=== PATIENT | female | born 1970 | race American Indian/Alaskan Native ===

== ENCOUNTER 2017-11-05 07:03 | Day surgery (SDC) | payer BC ==
[2017-11-05] MEDS ORDERED: VERSED ONE (07:26)
[2017-11-05] MEDS ORDERED: TRANSDERM-SCOP TD ONE (07:26)
[2017-11-05] MEDS ORDERED: ZOFRAN IV PRN ×2 (07:50)
[2017-11-05] MEDS ORDERED: DILAUDID IV PRN (07:50)
[2017-11-05] MEDS ORDERED: NACL 0.9% 1000 ML 1,000 ML IV SCH (08:00)
[2017-11-05] MEDS ORDERED: DIPRIVAN 10 MG/ML IV ONE (08:14)
[2017-11-05] MEDS ORDERED: XYLOCAINE MPF 2% ONE (08:15)
[2017-11-05] MEDS ORDERED: DECADRON ONE (08:16)
[2017-11-05] MEDS ORDERED: ANCEF/STERILE WATER 2 GM/20 ML IV NR (09:00)
--- NOTE | 2017-11-05 11:43 | Short Stay Summary ---
Short Stay Documentation Date of service: 11/05/17 - History H&P: obtained from office - Allergies and Medications Current Medications: Allergies hydrocodone Allergy (Verified 10/29/17 16:53) Hives naproxen [From Aleve] Allergy (Verified 10/29/17 16:53) Hives Home Medications Medication Instructions Recorded Confirmed Last Taken Type No Known Home Medications [No 10/29/17 10/29/17 Unknown History Reported Home Medications] Active Medications Cefazolin Sodium (Ancef/Sterile Water 2 Gm/20 Ml) 2 gm IV PREOP NR Stop: 11/05/17 23:59 Hydromorphone HCl (Dilaudid) 0.25 mg IV Q10MIN PRN PRN Reason: Pain, Moderate (4-6) Stop: 11/05/17 16:00 Sodium Chloride (Nacl 0.9% 1000 Ml) 1,000 mls @ 100 mls/hr IV DIRECT JENNY Last Admin: 11/05/17 08:20 Dose: 100 mls/hr Ondansetron HCl (Zofran) 8 mg IV ONCE PRN PRN Reason: Nausea And Vomiting Stop: 11/05/17 16:00 Ondansetron HCl (Zofran) 4 mg IV ONCE PRN PRN Reason: Nausea And Vomiting Stop: 11/05/17 16:00 - Brief post op/procedure progress note Date of procedure: 11/05/17 Pre-op diagnosis: right reanl 9mm Post-op diagnosis: same Procedure: right renal eswl Anesthesia: GETA Findings: or pacu home Surgeon: CATIA COLMENARES Estimated blood loss: minimal Pathology: none Specimen disposition: to lab Condition: stable - Hospital course Hospital course: or pacu home - Disposition Condition at discharge: Good Disposition: DC-01 TO HOME OR SELFCARE Short Stay Discharge Plan Activity: advance as tolerated Diet: advance as tolerated Follow up with: CATIA COLMENARES MD [Staff Physician] - 7 Days
--- NOTE | 2017-11-05 12:52 | Anesthesia Consultation ---
Anesthesia Consult and Med Hx Date of service: 11/05/17 - Airway Anesthetic Teeth Evaluation: Good ROM Head & Neck: Adequate Mental/Hyoid Distance: Adequate Mallampati Class: Class I Intubation Access Assessment: Good - Pulmonary Exam CTA: Yes - Cardiac Exam Cardiac Exam: No Murmur - Pre-Operative Health Status ASA Pre-Surgery Classification: ASA1 Proposed Anesthetic Plan: General - Pulmonary Hx Smoking: Yes (STOPPED X 3 YRS,1 PACK Q 3 DAYS X 20YRS) Hx Sleep Apnea: No (PARUL PRE SCREEN NEGATIVE) - Cardiovascular System Hx Hypertension: No - Central Nervous System Hx Back Pain: Yes - Other Systems Hx Cancer: No
[2017-11-05 21:02] VITALS: BP 98/63
--- NOTE | 2017-11-16 00:55 | Operative Report ---
PROCEDURE: Right renal ESWL. PREOPERATIVE DIAGNOSES: 1. Right renal upper pole 8-9 mm stone. 2. Right renal lower pole 16 mm stone. ANESTHESIA: General. FINDINGS: No deviation. SURGEON: Dr. Jeremy Bynum ESTIMATED BLOOD LOSS: Minimal. PATHOLOGY: None. SPECIMENS: None. CONDITION: Stable. DISPOSITION: PACU. CLINICAL INDICATIONS: Counseled on RCBA, antibiotics, SCD. Plan attempt fragmentation of the upper pole stone to either see if her stones would fragment easily or if we could drop the stone to the lower pole, which may give easier access in the future. DESCRIPTION OF PROCEDURE: The patient was transferred to OR suite in supine position. Anesthesia, supine position. Biplanar fluoroscopy was used to target the stone with an F2. There was good visualization of the stone. At the end of the procedure, intermittent repositioning was done as necessary. At the end of the procedure, there was some slight decreased fragmentation. The patient awakened and transferred to PACU in good and stable condition. JOB# [id number] ATS/NTS
== END 2017-11-05 12:45 | disposition home or self-care (01) ==
LOC: OR 07:03
PROVIDERS: ATTEND Urology
DX: N20.0 Calculus of kidney (principal); I10 Essential (primary) hypertension; Z87.891 Personal history of nicotine dependence; Z88.6 Allergy status to analgesic agent
CPT/HCPCS: 50590; J1100; J1170; J2250; J2405; J2704; J7030